=== PATIENT | male | born 1990 | race Caucasian/White ===

== ENCOUNTER 2018-05-31 11:13 | Emergency (ER) | payer OTHER, SELFPAY ==
[2018-05-31 11:20] VITALS: BP 142/88; PULSE 78; RESP 14; O2SAT 99
--- NOTE | 2018-05-31 12:29 | ED.BACK ---
HPI - Back Pain/Injury <ARMANDO Gifford - Last Filed: 05/31/18 21:51> General Chief Complaint: Back Pain/Injury Stated Complaint: threw out back Time Seen by Provider: 05/31/18 12:29 Source: patient Mode of arrival: ambulatory Limitations: no limitations History of Present Illness HPI Narrative: 28-year-old healthy male that is a former smoker here for complaint of pain into his left lower back over the past couple of days. He states that the pain started when he was put non a pair of pants and felt that his back got tight and painful after that. He denies any loss of bladder or bowel control. He is ambulatory into the emergency room. Reports increased pain with motion of the left lower back. No trauma to the lower back. No falls. He denies any other concerns or complaints at this timeframe. Complaint: back pain Related Data Previous Rx's Medication Instructions Recorded cyclobenzaprine 10 mg PO TID PRN #15 tab 05/31/18 prednisone 40 mg PO DAILY #8 tab 05/31/18 Allergies Allergy/AdvReac Type Severity Reaction Status Date / Time No Known Drug Allergies Allergy Verified 05/31/18 11:23 Review of Systems <ARMANDO Gifford - Last Filed: 05/31/18 21:51> Constitutional Denies chills, Denies fever(s), Denies lethargy and Denies weakness Eyes Denies change in vision, Denies eye discharge, Denies irritation and Denies loss of vision ENT Ears, Nose, Mouth, and Throat: Denies change in voice, Denies neck pain and Denies sore throat Cardiovascular Denies chest pain, Denies irregular heart rhythm, Denies lightheadedness, Denies palpitations, Denies dyspnea, Denies dyspnea on exertion and Denies orthopnea Respiratory Denies cough, Denies dyspnea, Denies dyspnea on exertion and Denies wheezing Gastrointestinal Gastrointestinal: Denies abdominal pain, Denies change in bowel habits, Denies diarrhea, Denies nausea and Denies vomiting Genitourinary Denies hematuria, Denies flank pain, Denies urinary incontinence and Denies urinary urgency Musculoskeletal Denies neck pain Comments: Left lower back pain Integumentary/Breasts Denies pruritus, Denies erythema, Denies rash and Denies wounds Neurologic Denies confusion, Denies loss of vision and Denies weakness Psychiatric Denies anxiety, Denies confusion, Denies depression, Denies homicidal ideation and Denies suicidal ideation Endocrine Denies palpitations Hematologic/Lymphatic Denies easy bruising Allergic/Immunologic Denies wheezing PFSH <ARMANDO Gifford - Last Filed: 05/31/18 21:51> Social History Smoking Status: Former smoker Social History Smoking Status: Former smoker Exam <ARMANDO Gifford - Last Filed: 05/31/18 21:51> Initial Vital Signs Initial Vital Signs: Vital Signs Pulse Rate 78 05/31/18 11:20 Respiratory Rate 14 05/31/18 11:20 Blood Pressure 142/88 H 05/31/18 11:20 Pulse Oximetry 99 05/31/18 11:20 Const General: cooperative and well developed Nutritional Appearance: well nourished Orientation: alert, awake, oriented x3 and not confused HENMT Mouth: oral mucosae normal and moist mucous membranes Eyes Conjunctivae: conjunctivae normal Sclera: sclerae normal Pupils: PERRL EOM: EOM intact bilaterally Resp Effort & Inspection: normal respiratory effort, able to speak in complete sentences, no respiratory distress and no use of accessory muscles Auscultation: clear to auscultation bilaterally, no rales, no rhonchi and no wheezes Cardio Rate: regular rate Rhythm: regular rhythm Heart Sounds: no click, no gallops, no murmurs and no rubs Back/Spine/Pelvis Other: Tenderness on palpation to the left lumbar paraspinals with muscle spasm. Tenderness radiates into the left posterior leg. Distal sensation is intact. Distal range of motion is intact. Distal pulses are intact Skin General: no rashes or lesions noted, No jaundice and No petechiae Neuro General: alert, oriented x3, gait normal and no focal motor deficits Speech: speech normal <Henry Turner DO - Last Filed: 06/01/18 18:21> Initial Vital Signs Initial Vital Signs: Vital Signs Pulse Rate 78 05/31/18 11:20 Respiratory Rate 14 05/31/18 11:20 Blood Pressure 142/88 H 05/31/18 11:20 Pulse Oximetry 99 05/31/18 11:20 Course <ARMANDO Gifford - Last Filed: 05/31/18 21:51> Vital Signs - 8 hr 05/31/18 11:20 Pulse Rate 78 Respiratory Rate 14 Blood Pressure 142/88 H Pulse Oximetry 99 <Henry Turner DO - Last Filed: 06/01/18 18:21> Vital Signs - 8 hr 05/31/18 11:20 Pulse Rate 78 Respiratory Rate 14 Blood Pressure 142/88 H Pulse Oximetry 99 MDM - Back Pain/Injury <ARMANDO Gifford - Last Filed: 05/31/18 21:51> [facility] Narrative Medical decision making narrative: Signs and symptoms presents as muscle strain into left lumbar paraspinals with muscle spasm. [id number] ibuprofen as needed for discomfort and anti-inflammatory effects. Cyclobenzaprine is prescribed to help with muscle spasm. Short course of prednisone as prescribed to help with sciatica. Follow up with primary care provider in the next couple of days for re-evaluation. Rest area. Gentle range of motion to painful areas. For any worsening symptoms return to the emergency room. May try heat to area 20 min at a time a few times a day to also try and keep muscles loose. Discharge Plan Departure Patient Disposition: Home Clinical Impression: Strain of lumbar region Qualifiers: Encounter type: initial encounter Qualified Code(s): S39.012A - Strain of muscle, fascia and tendon of lower back, initial encounter Sciatica Qualifiers: Laterality: left Qualified Code(s): M54.32 - Sciatica, left side Discharge Date/Time: 05/31/18 13:05 Interventions: ED Discharge Assessment Last Done: 05/31/18 13:04 Instructions: DI for Back Strain or Sprain Activity Restrictions/Additional Instructions: Signs and symptoms presents as muscle strain into left lumbar paraspinals with muscle spasm. [id number] ibuprofen as needed for discomfort and anti-inflammatory effects. Cyclobenzaprine is prescribed to help with muscle spasm use as directed. No driving while on a muscle relaxer. Short course of prednisone which is steroid is prescribed to help with sciatica. Follow up with primary care provider in the next couple of days for re-evaluation. Rest area. Gentle range of motion to painful areas. For any worsening symptoms return to the emergency room. May try heat to area 20 min at a time a few times a day to also try and keep muscles loose. Prescriptions: New cyclobenzaprine 10 mg tablet 10 mg PO TID PRN (Reason: muscle spasm) Qty: 15 RF: 0 prednisone 20 mg tablet 40 mg PO DAILY Qty: 8 RF: 0 Referrals: Moy Champagne MD [Primary Care Provider] - <Henry Turner DO - Last Filed: 06/01/18 18:21> Cosign ED Attending Deonature Attestation: I was immediately available in the department for consultation. Documentation has been reviewed. I agree with assessment and plan.
[2018-05-31 12:59] VITALS: BP 127/77; PULSE 82; RESP 18; O2SAT 95
== END 2018-05-31 13:05 | disposition home or self-care (01) ==
PROVIDERS: Emergency Provider Nurse Practitioner Family; Family Provider General Practice; PCP General Practice
DX: S39.012A Strain of muscle, fascia and tendon of lower back, initial encounter (principal)
CPT/HCPCS: 99282

== ENCOUNTER → 2018-08-10 20:07 | Outpatient (CLI) | payer OTHER, SELFPAY ==
--- NOTE | 2018-08-10 | DI.MRI.S_ITS ---
PROCEDURE: MR LUMBAR SPINE WO CON INDICATIONS: RADICULOPATHY, LUMBAR REGION TECHNIQUE: Noncontrast sagittal T1 spin echo and T2 fast echo, sagittal STIR, axial T1 and T2 fast spin echo through the lumbar spine. In cases with scoliosis, additional coronal T2 fast spin echo may be performed. COMPARISON: [facility], , L-SPINE WITHOUT CONTRAST, 03/30/2016, 19:44. FINDINGS: Image quality: Excellent. Alignment and Curvature: There is normal bony alignment. Bone Marrow: Marrow is of normal overall signal. No acute vertebral body compression fractures. Spinal Cord: Conus medullaris terminates at the L1 level. Visualized cord demonstrates normal signal and size. Paraspinous Soft Tissues: No paravertebral masses. T12-L1: Normal appearance. L1-L2: Mild to moderate loss of disc height and disc signal are seen. Mild generalized disc bulge is seen. No significant neural foraminal or central canal narrowing can be seen. Stable from the prior study. L2-L3: Normal appearance. L3-L4: No significant abnormality is seen. L4-L5: The disc height is well-preserved. Loss of disc signal is seen at this level. Moderate generalized disc bulge is seen. There is a mild central disc protrusion seen. Mild facet joint hypertrophy is seen. There is moderate bilateral neural foraminal narrowing seen, right greater than left. Mild to moderate central canal narrowing is seen. When comparison is made with the prior examination, these findings are similar. L5-S1: Mild loss of disc height is seen. Loss of disc signal is seen. Mild disc bulge is seen. There is a superimposed central/left disc extrusion seen, with inferior migration of the disc material. [id number] facet hypertrophy is seen. Moderate bilateral neural foraminal narrowing is seen, left greater than right. Moderate to severe central canal narrowing is seen, with regional mass effect upon the nerve roots, particularly upon the transiting left S1 nerve root. The disc extrusion has clearly increased compared to 2016. IMPRESSION: Left-sided L5-S1 disc extrusion, with associated regional mass effect, particularly upon the transiting left S1 nerve root. Dictated by: Davy England M.D. on 08/11/2018 at 8:06 Approved by: Davy England M.D. on 08/11/2018 at 8:21
== END ==
PROVIDERS: Family Provider General Practice; PCP General Practice; Visit Provider Orthopaedic Surgery
DX: M51.17 Intervertebral disc disorders with radiculopathy, lumbosacral region (principal)
CPT/HCPCS: 72148